=== PATIENT | female | born 1925 | race Caucasian/White ===

== ENCOUNTER → 2016-11-17 | Outpatient (CLI) | payer MEDICARE ==
[~2016-11-17] MED LIST: AMLO10TA82 PO; ASP325TEC PO; ASP81TEC PO; ATOR40TA PO; BNZ20T PO; CARV3.122 PO; CHOL50003 PO; CLOP75TA PO; FURO20TA4 PO; GARL400T13 PO; GLIM2TAB PO; GLIM4TAB PO; GLUC500C2 PO; GMFB600T PO; HCT25T PO; MECLIZINE PO; MULT1CAP27 PO; OMEG-12 PO; POTA20TA15 PO; ROSU20TA14 PO; SITA100T PO; TRM50T PO
--- NOTE | 2016-11-19 10:19 | ECHOCARDIOGRAPHY REPORT ---
PROCEDURE PHYSICIAN: FLORENCIO BARRETT DATE OF PROCEDURE: 11/17/2016 TWO DIMENSIONAL ECHOCARDIOGRAM REPORT PRIMARY PHYSICIAN: OTHER PHYSICIAN: REFERRING PHYSICIAN: Dr. Hazel Hussein ORDERING PHYSICIAN: INDICATION FOR THE PROCEDURE: Coronary artery disease. MEASUREMENTS DERIVED VALUES LV DIAMETER (LAX) NORMALS NORMALS Diastolic 3.4 (3.6-5.2) Eject. Fract. 60% (60%+/-6%) Systolic (2.3-3.9) Diastolic Vol. % Shortening (0.22-0.42) Systolic Vol. Aortic Root IVS THICKNESS Diastolic 1.2 (0.6-1.1) LVPW THICKNESS Diastolic 1.2 (0.6-1.1) LA DIAMETER Systolic 3.1 (2.1-3.7) FINDINGS: 1. Technical quality is good. 2. The left ventricle is normal in size with mild left ventricular hypertrophy noted diffusely. Systolic function appeared to be normal. Estimated ejection fraction 60%. 3. The left atrium is normal in size. No clot or thrombus were seen within the left atrium. 4. The right atrium and right ventricle are normal in size. No clot or thrombus were seen within the right side. 5. Mitral valve is normal in morphology with mild mitral regurgitation noted by color Doppler flow. No mitral valve prolapse. No mitral valve stenosis. 6. Aortic valve is mildly calcified. There is no significant aortic stenosis or regurgitation was seen. 7. Tricuspid valve is normal in morphology with mild tricuspid regurgitation noted by color Doppler flow. Doppler across tricuspid valve estimated pulmonary artery pressure of 17+ right atrial pressure. 8. Pulmonic valve is functioning normally. 9. No pericardial effusion. CONCLUSION: 1. Normal left ventricular size and systolic function. Mild left ventricular hypertrophy. Estimated ejection fraction 60%. 2. Aortic valve sclerosis. No aortic stenosis. 3. Mild mitral and tricuspid regurgitation. 4. Estimated pulmonary artery pressure of 25 mmHg. Job ID: [id number] Dictated Date: 11/18/2016 14:20:27 Intermodal Truck Driver Date: 11/19/2016 10:14:33 / luis carlos
== END ==
LOC: CARD 07:18
PROVIDERS: ATTEND Internal Medicine Cardiovascular Disease
DX: I25.10 Atherosclerotic heart disease of native coronary artery without angina pectoris (principal); I50.9 Heart failure, unspecified; I65.23 Occlusion and stenosis of bilateral carotid arteries; R07.9 Chest pain, unspecified; E78.2 Mixed hyperlipidemia; I11.0 Hypertensive heart disease with heart failure
CPT/HCPCS: 93306

== ENCOUNTER → 2016-11-21 | Outpatient (CLI) | payer MEDICARE ==
[~2016-11-21] VITALS: Ht 170.2 cm; Wt 73.0 kg
[~2016-11-21] MED LIST changes: +CATHETER FLUSH 10 ML SYR IV PRN; +REGADENOSON 0.4 MG/5 ML SYR (LEXISCAN) IV ONE
[2016-11-21 10:06] VITALS: BP 211/94
[2016-11-21 10:10] VITALS: BP 169/70
--- NOTE | 2016-11-21 13:36 | STRESS TEST ---
PROCEDURE PHYSICIAN: FLORENCIO BARRETT DATE OF PROCEDURE: 11/21/2016 LEXISCAN MYOVIEW STRESS TEST REPORT: REFERRING PHYSICIAN: Dr. Lily Hussein. INDICATION: Coronary artery disease. BASELINE HEART RATE: 64 BASELINE BLOOD PRESSURE: 211/71 BASELINE EKG: Sinus rhythm with no ischemic changes. SUMMARY: The patient was injected with 10.33 mCi of technetium 99 Myoview and the resting images were obtained. Then the patient received 0.4 mg of Lexiscan followed by 30.5 mCi of technetium 99 Myoview. Throughout the test, there were no EKG changes. The resting and stress images were reviewed and compared in the short axis, horizontal long axis, and vertical long axis views. Review of the images showed breast attenuation that affected the quality of the images. There is mild decreased uptake at the basal to mid anterior wall, with subtle reversibility. SSS 5, SDS 3, TID value 1.08. On the gated images, the left ventricle appeared to be normal size with normal contractility. Calculated ejection fraction 69%. IN CONCLUSION: 1. The patient tolerated Lexiscan well. 2. Breast attenuation with subtle decrease uptake at the basal to mid anterior wall, with subtle reversibility. No significant ischemia or infarction was seen. 3. Normal left ventricular size with normal contractility. Calculated ejection fraction 69%. Job ID: [id number] Dictated Date: 11/21/2016 12:21:21 Rate Analyst Date: 11/21/2016 13:28:38 / whitney
== END ==
LOC: CARD 07:51
PROVIDERS: ATTEND Internal Medicine Cardiovascular Disease
DX: I25.10 Atherosclerotic heart disease of native coronary artery without angina pectoris (principal); I65.23 Occlusion and stenosis of bilateral carotid arteries; R07.9 Chest pain, unspecified; E78.2 Mixed hyperlipidemia; I11.0 Hypertensive heart disease with heart failure; I50.9 Heart failure, unspecified
CPT/HCPCS: 78452; 93017

== ENCOUNTER 2017-03-29 05:38 | Outpatient (CLI) | payer MEDICARE ==
[~2017-03-29] VITALS: Ht 170.2 cm; Wt 73.0 kg
[~2017-03-29 05:38] MED LIST changes: -CATHETER FLUSH 10 ML SYR IV PRN; -REGADENOSON 0.4 MG/5 ML SYR (LEXISCAN) IV ONE
[2017-03-29] MEDS ORDERED: ATOR40TA70 PO (12:45)
[2017-03-29] MEDS ORDERED: POTA10TA10 PO (12:45)
[2017-03-29] MEDS ORDERED: GABA-486 PO (12:45)
[2017-03-29] MEDS ORDERED: SITA50TA PO (12:45)
[2017-03-29] MEDS ORDERED: LISI-556 PO (13:18)
[2017-03-29] MEDS ORDERED: HYDR-3923 PO (13:18)
[2017-05-01] MEDS ORDERED: TRAM50TA2 PO (14:44)
[2017-05-14] MEDS ORDERED: AMLO10TA2 PO (11:45)
[2017-05-14] MEDS ORDERED: POTA10CA43 PO (11:45)
[2017-05-14] MEDS ORDERED: ASPI-983 PO (14:23)
[2017-05-15] MEDS ORDERED: OMG1KC PO (09:51)
[2017-05-15] MEDS ORDERED: SITA50TA PO (09:51)
== END 2017-03-29 13:20 ==
LOC: PREOP 05:38
PROVIDERS: ATTEND Surgery
DX: Z01.818 Encounter for other preprocedural examination (principal); K92.1 Melena

== ENCOUNTER 2017-04-03 11:20 | Day surgery (SDC) | payer MEDICARE ==
[~2017-04-03] VITALS: Ht 170.2 cm; Wt 73.0 kg
[~2017-04-03 11:20] MED LIST changes: +ATOR40TA70 PO; +GABA-486 PO; +HYDR-3923 PO; +LISI-556 PO; +POTA10TA10 PO; +SITA50TA PO
--- OUTSIDE RECORDS SUMMARY | 2017-04-03 11:24 | XMS REPORT ---
Author Author MOOK BANEGAS [facility] [place] eClinicalWorks Address Unknown Phone Unavailable Care Team Providers Care Real Time Operator Name Role Phone MOOK BANEGAS CP Unavailable Allergies, Adverse Reactions, Alerts Substance Reaction Event Type N.K.D.A. Info Not Available Non Drug Allergy Problems Problem Type Condition Code Onset Dates Condition Status Assessment Encounter for dental examination Z01.20 Active Problem Encounter for dental examination Z01.20 Active Medications Medication Code System Code Instructions Start Date End Date Status Dosage Hydrochlorothiazide [facility] [id number] not defined Vitamin D-3 [facility] [id number] not defined Ferrex 150 [facility] [address]-29 not defined Amlodipine & Diet Manage Prod NDC 0 not defined Clopidogrel Bisulfate [facility] [address]-62 not defined Atorvastatin Calcium [facility] [address]-84 not defined Gabapentin [facility] [address]-27 not defined Fish Oil [facility] [address]-71 not defined Micro-K [facility] [address]-10 not defined Procedures Procedure Coding System Code Date INTRAORL-PERIAPICAL 1 FILM 48105 CPT-4 D0220 Jun 03, 2016 INTRAORL-PERIAPICAL EA ADD FILM CPT-4 D0230 Jun 03, 2016 PERIODIC ORAL EXAMINATION CPT-4 D0120 Jun 03, 2016 BITEWINGS - TWO FILMS CPT-4 D0272 Jun 03, 2016 INTRAORL-PERIAPICAL EA ADD FILM CPT-4 D0230 Jun 03, 2016 TOPICAL FLUORIDE VARNISH CPT-4 D1206 Jun 03, 2016 Periodontal maint procedures CPT-4 D4910 Jun 03, 2016 Vital Signs Date/Time: Jun 03, 2016 Blood Pressure Diastolic 65 mmHg Blood Pressure Systolic 153 mmHg Cardiac Monitoring Heart Rate 69 bpm Results No Known Results Summary Purpose eClinicalWorks Submission
--- OUTSIDE RECORDS SUMMARY | 2017-04-03 11:24 | XMS REPORT ---
Author Author KATHY HUMPHREYS [facility] eClinicalWorks Address Unknown Phone Unavailable Care Team Providers Care Air Crew Supervisor Name Role Phone KATHY HUMPHREYS CP Unavailable Allergies No Known Allergies Problems Problem Type Condition ICD-9 Code Onset Dates Condition Status Assessment Dental examination V72.2 Active Medications No Known Medications Procedures Procedure Coding System Code Date Billing Notes on claim CPT-4 EC109 December 12, 2014 Results No Known Results Summary Purpose eClinicalWorks Submission
--- OUTSIDE RECORDS SUMMARY | 2017-04-03 11:25 | XMS REPORT | Continuity of Care Document ---
Author Author [facility] Organization [facility] Address Unknown Phone Unavailable Allergies Active Description Code Type Severity Reaction Onset Reported/Identified Relationship to Patient Clinical Status Yes No Known Drug Allergies [id number] Drug Allergy Unknown N/ A 08/27/2008 Medications Problems Date Dx Coded Attending Type Code Diagnosis Diagnosed By 12/21/2011 Ot 250.00 DIAB AUNDREA WO COMPL, TYPE II OR UNSPEC TY 12/21/2011 Ot 272.4 HYPERLIPIDEMIA NEC/NOS 12/21/2011 Ot 276.8 HYPOPOTASSEMIA 12/21/2011 Ot 401.9 HYPERTENSION NOS 12/21/2011 Ot 414.01 CORONARY ATHEROSCLEROSIS OF [place] CORON 12/21/2011 Ot 428.0 CONGESTIVE HEART FAILURE NOS 12/21/2011 Ot 433.10 CAROTID ARTERY OCCLUSION W O CEREBRAL IN 12/21/2011 Ot 440.20 ATHEROSCLEROSIS [place] ARTERIES EXTREMIT 12/21/2011 Ot V45.82 PERCUTANEOUS TRANSLUM CORON ANGIOPLASTY 05/24/2012 Ot 250.00 DIAB AUNDREA WO COMPL, TYPE II OR UNSPEC TY 05/24/2012 Ot 272.4 HYPERLIPIDEMIA NEC/NOS 05/24/2012 Ot 401.9 HYPERTENSION NOS 05/24/2012 Ot 414.01 CORONARY ATHEROSCLEROSIS OF [place] CORON 05/24/2012 Ot 794.30 ABN CARDIOVASC STUDY NOS 05/24/2012 Ot V45.82 PERCUTANEOUS TRANSLUM CORON ANGIOPLASTY 05/24/2012 Ot V58.63 LONG-TERM(CURRENT)USE OF ANTIPLATELET/AN 05/24/2012 Ot V58.66 LONG-TERM (CURRENT) USE OF ASPIRIN 05/24/2012 Ot V58.69 OTH MED,LT,CURRENT USE 11/18/2016 FLORENCIO BARRETT MD Ot E78.2 MIXED HYPERLIPIDEMIA 11/18/2016 FLORENCIO BARRETT MD Ot I11.0 HYPERTENSIVE HEART DISEASE WITH HEART FA 11/18/2016 FLORENCIO BARRETT MD Ot I25.10 ATHSCL HEART DISEASE OF [place] CORONARY 11/18/2016 FLORENCIO BARRETT MD Ot I50.9 HEART FAILURE, UNSPECIFIED 11/18/2016 FLORENCIO BARRETT MD Ot I65.23 OCCLUSION AND STENOSIS OF [place] 11/18/2016 FLORENCIO BARRETT MD Ot R07.9 CHEST PAIN, UNSPECIFIED 11/18/2016 Ot 433.10 CAROTID ARTERY OCCLUSION W O CEREBRAL IN 11/18/2016 Ot V72.63 PRE-PROCEDURAL LABORATORY EXAMINATION 11/18/2016 Ot V72.81 [id number] CARDIOVASCULAR 11/18/2016 Ot V72.83 EXAM PRE-OPERATIVE NEC 11/18/2016 Ot V74.8 SCREEN-BACTERIAL DIS NEC 11/18/2016 Ot 401.9 HYPERTENSION NOS 11/18/2016 Ot 414.00 CORON ATHEROSCLER NOS TYPE VESSEL, NATIV 11/18/2016 Ot 397.0 TRICUSPID VALVE DISEASE 11/18/2016 Ot 401.9 HYPERTENSION NOS 11/18/2016 Ot 414.00 CORON ATHEROSCLER NOS TYPE VESSEL, NATIV 11/18/2016 Ot 424.0 MITRAL VALVE DISORDER 11/18/2016 Ot 429.3 CARDIOMEGALY 11/18/2016 FABRICIO BURGOS Ot 272.4 HYPERLIPIDEMIA NEC/NOS 11/18/2016 FABRICIO BURGOS Ot 397.0 TRICUSPID VALVE DISEASE 11/18/2016 FABRICIO BURGOS Ot 401.9 HYPERTENSION NOS 11/18/2016 FABRICIO BURGOS Ot 414.00 CORON ATHEROSCLER NOS TYPE VESSEL, NATIV 11/18/2016 FABRICIO BURGOS Ot 424.0 MITRAL VALVE DISORDER 11/18/2016 FABRICIO BURGOS Ot 433.10 CAROTID ARTERY OCCLUSION W O CEREBRAL IN 11/18/2016 FABRICIO BURGOS Ot 793.99 OT NOSP (ABN) FINDINGS RADIOLOGICAL O 11/18/2016 FABRICIO BURGOS Ot 272.4 HYPERLIPIDEMIA NEC/NOS 11/18/2016 FABRICIO BURGOS Ot 401.9 HYPERTENSION NOS 11/18/2016 FABRICIO BURGOS Ot 414.00 CORON ATHEROSCLER NOS TYPE VESSEL, NATIV 11/18/2016 FLORENCIO BARRETT MD Ot I25.10 ATHSCL HEART DISEASE OF [place] CORONARY 11/18/2016 FLORENCIO BARRETT MD Ot E78.2 MIXED HYPERLIPIDEMIA 11/18/2016 FLORENCIO BARRETT MD J Ot I11.0 HYPERTENSIVE HEART DISEASE WITH HEART FA 11/18/2016 FLORENCIO BARRETT MD Ot I25.10 ATHSCL HEART DISEASE OF [place] CORONARY 11/18/2016 FLORENCIO BARRETT MD Ot I50.9 HEART FAILURE, UNSPECIFIED 11/18/2016 FLORENCIO BARRETT MD J Ot I65.23 OCCLUSION AND STENOSIS OF [place] 11/18/2016 FLORENCIO BARRETT MD Ot R07.9 CHEST PAIN, UNSPECIFIED 11/21/2016 FLORENCIO BARRETT MD Ot E78.2 MIXED HYPERLIPIDEMIA 11/21/2016 FLORENCIO BARRETT MD Ot I11.0 HYPERTENSIVE HEART DISEASE WITH HEART FA 11/21/2016 FLORENCIO BARRETT MD Ot I25.10 ATHSCL HEART DISEASE OF [place] CORONARY 11/21/2016 FLORENCIO BARRETT MD Ot I50.9 HEART FAILURE, UNSPECIFIED 11/21/2016 FLORENCIO BARRETT MD Ot I65.23 OCCLUSION AND STENOSIS OF [place] 11/21/2016 FLORENCIO BARRETT MD Ot R07.9 CHEST PAIN, UNSPECIFIED 11/21/2016 FLORENCIO BARRETT MD Ot E78.2 MIXED HYPERLIPIDEMIA 11/21/2016 FLORENCIO BARRETT MD Ot I11.0 HYPERTENSIVE HEART DISEASE WITH HEART FA 11/21/2016 FLORENCIO BARRETT MD Ot I25.10 ATHSCL HEART DISEASE OF [place] CORONARY 11/21/2016 FLORENCIO BARRETT MD Ot I50.9 HEART FAILURE, UNSPECIFIED 11/21/2016 FLORENCIO BARRETT MD Ot I65.23 OCCLUSION AND STENOSIS OF [place] 11/21/2016 FLORENCIO BARRETT MD Ot R07.9 CHEST PAIN, UNSPECIFIED 11/21/2016 FLORENCIO BARRETT MD Ot E78.2 MIXED HYPERLIPIDEMIA 11/21/2016 FLORENCIO BARRETT MD Ot I11.0 HYPERTENSIVE HEART DISEASE WITH HEART FA 11/21/2016 FLORENCIO BARRETT MD Ot I25.10 ATHSCL HEART DISEASE OF [place] CORONARY 11/21/2016 FLORENCIO BARRETT MD Ot I50.9 HEART FAILURE, UNSPECIFIED 11/21/2016 FLORENCIO BARRETT MD Ot I65.23 OCCLUSION AND STENOSIS OF [place] 11/21/2016 FLORENCIO BARRETT MD Ot R07.9 CHEST PAIN, UNSPECIFIED 11/21/2016 FLORENCIO BARRETT MD Ot E78.2 MIXED HYPERLIPIDEMIA 11/21/2016 FLORENCIO BARRETT MD Ot I11.0 HYPERTENSIVE HEART DISEASE WITH HEART FA 11/21/2016 FLORENCIO BARRETT MD Ot I25.10 ATHSCL HEART DISEASE OF [place] CORONARY 11/21/2016 FLORENCIO BARRETT MD Ot I50.9 HEART FAILURE, UNSPECIFIED 11/21/2016 FLORENCIO BARRETT MD Ot I65.23 OCCLUSION AND STENOSIS OF [place] 11/21/2016 FLORENCIO BARRETT MD Ot R07.9 CHEST PAIN, UNSPECIFIED 11/23/2016 FLORENCIO BARRETT MD Ot E78.2 MIXED HYPERLIPIDEMIA 11/23/2016 FLORENCIO BARRETT MD Ot I11.0 HYPERTENSIVE HEART DISEASE WITH HEART FA 11/23/2016 FLORENCIO BARRETT MD Ot I25.10 ATHSCL HEART DISEASE OF [place] CORONARY 11/23/2016 FLORENCIO BARRETT MD Ot I50.9 HEART FAILURE, UNSPECIFIED 11/23/2016 FLORENCIO BARRETT MD Ot I65.23 OCCLUSION AND STENOSIS OF [place] 11/23/2016 FLORENCIO BARRETT MD Ot R07.9 CHEST PAIN, UNSPECIFIED 11/27/2016 FLORENCIO BARRETT MD Ot E78.2 MIXED HYPERLIPIDEMIA 11/27/2016 FLORENCIO BARRETT MD Ot I11.0 HYPERTENSIVE HEART DISEASE WITH HEART FA 11/27/2016 FLORENCIO BARRETT MD Ot I25.10 ATHSCL HEART DISEASE OF [place] CORONARY 11/27/2016 FLROENCIO BARRETT MD Ot I50.9 HEART FAILURE, UNSPECIFIED 11/27/2016 FLORENCIO BARRETT MD Ot I65.23 OCCLUSION AND STENOSIS OF [place] 11/27/2016 FLORENCIO BARRETT MD Ot R07.9 CHEST PAIN, UNSPECIFIED 12/13/2016 FLORENCIO BARRETT MD Ot E78.2 MIXED HYPERLIPIDEMIA 12/13/2016 FLORENCIO BARRETT MD Ot I11.0 HYPERTENSIVE HEART DISEASE WITH HEART FA 12/13/2016 FLORENCIO BARRETT MD Ot I25.10 ATHSCL HEART DISEASE OF [place] CORONARY 12/13/2016 FLORENCIO BARRETT MD Ot I50.9 HEART FAILURE, UNSPECIFIED 12/13/2016 FLORENCIO BARRETT MD Ot I65.23 OCCLUSION AND STENOSIS OF [place] 12/13/2016 FLORENCIO BARRETT MD Ot R07.9 CHEST PAIN, UNSPECIFIED 12/20/2016 FLORENCIO BARRETT MD Ot E78.2 MIXED HYPERLIPIDEMIA 12/20/2016 FLORENCIO BARRETT MD Ot I11.0 HYPERTENSIVE HEART DISEASE WITH HEART FA 12/20/2016 FLORENCIO BRARETT MD Ot I25.10 ATHSCL HEART DISEASE OF [place] CORONARY 12/20/2016 FLORENCIO BARRETT MD Ot I50.9 HEART FAILURE, UNSPECIFIED 12/20/2016 FLORENCIO BARRETT MD Ot I65.23 OCCLUSION AND STENOSIS OF [place] 12/20/2016 FLORENCIO BARRETT MD Ot R07.9 CHEST PAIN, UNSPECIFIED 12/21/2016 FLORENCIO BARRETT MD Ot E78.2 MIXED HYPERLIPIDEMIA 12/21/2016 FLORENCIO BARRETT MD Ot I11.0 HYPERTENSIVE HEART DISEASE WITH HEART FA 12/21/2016 FLORENCIO BARRETT MD Ot I25.10 ATHSCL HEART DISEASE OF [place] CORONARY 12/21/2016 FLORENCIO BARRETT MD Ot I50.9 HEART FAILURE, UNSPECIFIED 12/21/2016 FLORENCIO BARRETT MD Ot I65.23 OCCLUSION AND STENOSIS OF [place] 12/21/2016 FLORENCIO BARRETT MD Ot R07.9 CHEST PAIN, UNSPECIFIED 12/29/2016 FLORENCIO BARRETT MD Ot E78.2 MIXED HYPERLIPIDEMIA 12/29/2016 FLORENCIO BARRETT MD Ot I11.0 HYPERTENSIVE HEART DISEASE WITH HEART FA 12/29/2016 FLORENCIO BARRETT MD Ot I25.10 ATHSCL HEART DISEASE OF [place] CORONARY 12/29/2016 FLORENCIO BARRETT MD Ot I50.9 HEART FAILURE, UNSPECIFIED 12/29/2016 FLORENCIO BARRETT MD Ot I65.23 OCCLUSION AND STENOSIS OF [place] 12/29/2016 FLORENCIO BARRETT MD Ot R07.9 CHEST PAIN, UNSPECIFIED 03/29/2017 Ot 433.10 CAROTID ARTERY OCCLUSION W O CEREBRAL IN 03/29/2017 Ot V72.63 PRE-PROCEDURAL LABORATORY EXAMINATION 03/29/2017 Ot V72.81 [id number] CARDIOVASCULAR 03/29/2017 Ot V72.83 EXAM PRE-OPERATIVE NEC 03/29/2017 Ot V74.8 SCREEN-BACTERIAL DIS NEC 03/29/2017 Ot 401.9 HYPERTENSION NOS 03/29/2017 Ot 414.00 CORON ATHEROSCLER NOS TYPE VESSEL, NATIV 03/29/2017 Ot 397.0 TRICUSPID VALVE DISEASE 03/29/2017 Ot 401.9 HYPERTENSION NOS 03/29/2017 Ot 414.00 CORON ATHEROSCLER NOS TYPE VESSEL, NATIV 03/29/2017 Ot 424.0 MITRAL VALVE DISORDER 03/29/2017 Ot 429.3 CARDIOMEGALY 03/29/2017 FABRICIO BURGOS Ot 272.4 HYPERLIPIDEMIA NEC/NOS 03/29/2017 FABRICIO BURGOS Ot 397.0 TRICUSPID VALVE DISEASE 03/29/2017 FABRICIO BURGOS Ot 401.9 HYPERTENSION NOS 03/29/2017 FABRICIO BURGOS Ot 414.00 CORON ATHEROSCLER NOS TYPE VESSEL, NATIV 03/29/2017 FABRICIO BURGOS Ot 424.0 MITRAL VALVE DISORDER 03/29/2017 FABRICIO BURGOS Ot 433.10 CAROTID ARTERY OCCLUSION W O CEREBRAL IN 03/29/2017 FABRICIO BURGOS Ot 793.99 OTH NOSP (ABN) FINDINGS RADIOLOGICAL O 03/29/2017 FABRICIO BURGOS Ot 272.4 HYPERLIPIDEMIA NEC/NOS 03/29/2017 FABRICIO BURGOS Ot 401.9 HYPERTENSION NOS 03/29/2017 FABRICIO BURGOS Ot 414.00 CORON ATHEROSCLER NOS TYPE VESSEL, NATIV 03/29/2017 FLORENCIO BARRETT MD Ot E78.2 MIXED HYPERLIPIDEMIA 03/29/2017 FLORENCIO BARRETT MD Ot I11.0 HYPERTENSIVE HEART DISEASE WITH HEART FA 03/29/2017 FLORENCIO BARRETT MD Ot I25.10 ATHSCL HEART DISEASE OF [place] CORONARY 03/29/2017 FLORENCIO BARRETT MD Ot I50.9 HEART FAILURE, UNSPECIFIED 03/29/2017 FLORENCIO BARRETT MD Ot I65.23 OCCLUSION AND STENOSIS OF [place] 03/29/2017 FLORENCIO BARRETT MD Ot R07.9 CHEST PAIN, UNSPECIFIED 03/29/2017 FLORENCIO BARRETT MD Ot E78.2 MIXED HYPERLIPIDEMIA 03/29/2017 FLORENCIO BARRETT MD Ot I11.0 HYPERTENSIVE HEART DISEASE WITH HEART FA 03/29/2017 FLORENCIO BARRETT MD Ot I25.10 ATHSCL HEART DISEASE OF [place] CORONARY 03/29/2017 FLORENCIO BARRETT MD Ot I50.9 HEART FAILURE, UNSPECIFIED 03/29/2017 FLORENCIO BARRETT MD Ot I65.23 OCCLUSION AND STENOSIS OF [place] 03/29/2017 FLORENCIO BARRETT MD Ot R07.9 CHEST PAIN, UNSPECIFIED 03/29/2017 GUADALUPE CORNELL MD Ot K92.1 [facility] 03/29/2017 GUADALUPE CORNELL MD Ot Z01.818 ENCOUNTER FOR OTHER PREPROCEDURAL EXAMIN 03/29/2017 GUADALUPE CORNELL MD Ot K92.1 [facility] 03/29/2017 GUADALUPE CORNELL MD Ot Z01.818 ENCOUNTER FOR OTHER PREPROCEDURAL EXAMIN Procedures Code Description Performed By Performed On 00.40 PROCEDURE ON SINGLE VESSEL 12/19/2011 38.12 HEAD NECK ENDARTER NEC 12/19/2011 Results Encounters ACCT No. Visit Date/Time Discharge Status Pt. Type Provider Facility Loc./Unit Complaint [id number] 03/29/2017 05:38:00 2016 13:20:00 DIS Outpatient GUADALUPE CORNELL MD [facility] PREOP POSITIVE OCCULT STOOL [id number] 11/21/2016 07:51:00 2016 23:59:59 CLS Outpatient FLORENCIO BARRETT MD [facility] CARD CAD,CHF [id number] 11/17/2016 07:18:00 2016 23:59:59 CLS Outpatient FLORENCIO BARRETT MD [facility] CARD CAD [id number] 03/24/2014 08:26:00 2013 23:59:59 CLS Outpatient FABRICIO BURGOS [facility] CARD CAD,VY,HTN,HLP [id number] 03/21/2014 08:51:00 2013 23:59:59 CLS Outpatient AUBRIE GAMING, FABRICIO Connor [facility] CARD CAD,VY,HTN,HLP [id number] 04/03/2017 11:15:00 GISELA CORNELL MD, GUADALUPE [place] [facility] ENDO POSITIVE OCCULT STOOL [id number] 05/23/2012 06:35:00 Document Registration [id number] 05/08/2012 11:11:00 Document Registration [id number] 05/03/2012 10:03:00 Document Registration [id number] 12/19/2011 05:47:00 Document Registration [id number] 12/15/2011 09:40:00 Document Registration
[2017-04-03] MEDS ORDERED: NS IV 500 ML 500 ML ONE (11:40)
[2017-04-03] MEDS ORDERED: NS IV 500 ML 500 ML IV ONE (11:45)
[2017-04-03 11:59] VITALS: BP 194/90
[2017-04-03] MEDS ORDERED: MIDAZOLAM 2 MG/2 ML (VERSED) VIAL ONE ×3 (14:28)
[2017-04-03] MEDS ORDERED: fentaNYL INJECTION 100 MCG/2 ML AMP ONE (14:28)
--- NOTE | 2017-04-03 14:47 | History & Physicial ---
History of Present Illness History of Present Illness Reason for visit/HPI to undergo colonoscopy to evaluate heme positive stools Date of Admission Date Seen by Provider: Apr 03, 2017 Time Seen by Provider: 14:46 I consulted on this patient on 04/03/17 14:42 Attending Physician Guadalupe Cornell MD Admitting Physician Hazel Hussein MD Consult Allergies and Home Medications Allergies Coded Allergies: No Known Drug Allergies (Verified Allergy, Unknown, 08/27/08) Home Medications Amlodipine Besylate 10 Mg Tablet, 10 MG PO DAILY, (Reported) Aspirin 81 Mg Tabec, 81 MG PO DAILY, (Reported) Atorvastatin Calcium 40 Mg Tablet, 40 MG PO HS, (Reported) Cholecalciferol 5,000 Unit Tablet, 5,000 UNIT PO DAILY, (Reported) Clopidogrel Bisulfate 75 Mg Tablet, 75 MG PO DAILY, (Reported) Gabapentin 100 Mg Capsule, 100 MG PO TID, (Reported) Garlic 400 Mg Tablet.dr, 400 MG PO DAILY, (Reported) Glucosamine Sulfate 500 Mg Capsule, 500 MG PO DAILY, (Reported) Hydralazine HCl 25 Mg Tablet, 25 MG PO BID, (Reported) Hydrochlorothiazide 25 Mg Tablet, 25 MG PO DAILY, (Reported) Lisinopril 5 Mg Tablet, 5 MG PO DAILY, (Reported) Multivitamins 1 Each Capsule, 1 EACH PO DAILY, (Reported) Penn Laird-3/Dha/Epa/Fish Oil 1 Each Capsule.dr, 1,000 MG PO BID, (Reported) Potassium Chloride 10 Meq Tablet.er, 10 MEQ PO DAILY, (Reported) Sitagliptin Phosphate 50 Mg Tablet, 50 MG PO DAILY, (Reported) Past Fvanhln-Hmjkcx-Epnmug Hx Patient Social History Employed/Student: retired Alcohol Use: Denies Use Recreational Drug Use: No Smoking Status: Never a Smoker Recent Foreign Travel: No Contact w/other who traveled: No Recent Hopitalizations: No Recent Infectious Disease Expo: No Seasonal Allergies Seasonal Allergies: No Surgeries Hysterectomy Cardiovascular Hypertension Reproductive System Hx Reproductive Disorders: No Gastrointestinal Chronic Constipation Musculoskeletal Arthritis Cancer Ovarian Type of Treatment: Surgical Intervention Constitutional: no symptoms reported EENTM: no symptoms reported Respiratory: no symptoms reported Cardiovascular: no symptoms reported Gastrointestinal: melena Genitourinary: no symptoms reported Musculoskeletal: no symptoms reported Skin: no symptoms reported Psychiatric/Neurological: No Symptoms Reported Physical Exam Vital Signs Vital Sign - Last 12Hours 04/03/17 11:59 Temp 96.8 Pulse 77 Resp 18 B/P (MAP) 194/90 Pulse Ox 94 O2 Delivery Room Air Capillary Refill : General Appearance: No Apparent Distress HEENT: Normal ENT Inspection Neck: Normal Inspection Cardiovascular: Regular Rate, Rhythm Gastrointestinal: Normal Bowel Sounds Rectal: Deferred Back: Normal Inspection Extremity: Normal Inspection Neurologic/Psychiatric: Alert, Oriented x3 Skin: Warm/Dry Assessment/Plan Assessment and Plan Lady with heme positive stools, For colonoscopy Problems: GUADALUPE CORNELL MD Apr 03, 2017 2:46 pm
[2017-04-03] MEDS: fentaNYL INJECTION 100 MCG/2 ML AMP IVP PRN ×2 (15:02→15:05)
[2017-04-03] MEDS: MIDAZOLAM 2 MG/2 ML (VERSED) VIAL IVP PRN ×2 (15:03→15:06)
--- NOTE | 2017-04-03 15:46 | Endo Procedure Record ---
Endo Procedure Report Date of Procedure Apr 03, 2017 Surgeon (s) GUADALUPE CORNELL MD Post Procedure/Op Diagnosis 1.sigmoid diverticulosis 2. 1 mm polyp 2 at the proximal transverse colon 3. 3 mm polyp at the ascending colon 4. 2 mm polyp at the ascending colon, adjacent to polyp number 3 5. Sessile lesion at the cecum Procedure Performed 1.colonoscopy to cecum 2.Hot biopsy polypectomy 2 3. Snare polypectomy 2 4. Biopsy of cecal mass 5. Tattooing of cecal mass Description of Procedure Anesthesia Type: Conscious Sedation Specimen(s) collected/removed polyps and samples from the cecal mass Description of the Procedure Indication for the procedure:This lady was found to have heme positive stools. It is notable that she had not undergone screening colonoscopy in her lifetime. It was therefore felt reasonable to offer colonoscopy to evaluate the source of blood loss.informed consent was obtained after reviewing the procedure in detail. Description of procedure: She was placed in left lateral decubitus position and her vital signs were monitored. Conscious sedation was achieved using Versed and fentanyl. Digital rectal examination revealed a lax anal sphincter. The colonoscope was then introduced in the rectum and advanced all the way up to the cecum. The quality of bowel preparation was excellent. The scope was then withdrawn slowly and the mucosa examined in a systematic fashion. Findings: 1.Sigmoid diverticulosis 2. 2 polyps, and millimeter each, adjacent to each other, at the proximal transverse colon. These were excised with hot biopsy forceps 3. 2 polyps, 3 mm and 2 mm each, pedunculated in nature, adjacent to each other , at the ascending colon. These were snared and retrieved 4. A sessile mass lesion at the cecum having the appearance of either a villous adenoma or an early carcinoma. Biopsies were obtained and the area was tattooed with Siria ink for identification during resection. She tolerated the procedure well and was taken back to the nursing area in a stable condition. Impression: Heme positive stools.multiple polyps and a cecal lesion identified. Would require right hemicolectomy using robotic assistance and intracorporeal anastomosis. She will undergo CT scan evaluation and cardiac clearance prior to surgery Copies To: RAY BOUCHER MD, XAVIER M MD Apr 03, 2017 3:46 pm
--- NOTE | 2017-04-03 15:48 | Discharge Inst-Simple/Standard ---
Discharge Inst-Standard Discharge Medications New, Converted or Re-Newed RX: Other Patient Instructions/Follow Up Plan of Care/Instructions/FU: please schedule CT of the chest with IV contrast, CT of the abdomen and pelvis with oral and IV contrast as an outpatient, preferably this week. Follow up with me on at 1030 a.m. Activity as Tolerated: Yes Discharge Diet: No Restrictions GUADALUPE CORNELL MD Apr 03, 2017 3:48 pm
[2017-04-03 15:50] VITALS: BP 219/92
[2017-04-03 16:20] VITALS: BP 208/88
[2017-04-03 16:38] VITALS: BP 208/88
[2017-04-03 17:18] LABS: CREATININE SERUM 0.9 MG/DL (0.60-1.30)
--- NOTE | 2017-04-21 16:14 | Conscious Sedation/ASA ---
Conscious Sedation Pre-Proced Time Reviewed: 07:55 ASA Class: 2 Airway Mallampati Classification: ([place] appropriate class) I. II. III, IV Lungs Heart ASA score ASA 1: a normal healthy patient ASA 2: a patient with a mild systemic disease (mid diabetes, controlled hypertension, obesity ASA 3: a patient with a severe systemic disease that limits activity (angina , COPD, prior Myocardial infarction) ASA 4: a patient with an incapacitating disease that is a constant threat to life (CHF, renal failure) ASA 5: a moribund patient not expected to survive 24 hrs. (ruptured aneurysm) ASA 6: a declared brain patient whose organs are being harvested. For emergent operations, add the letter E after the classification Grade 1 Sedation Plan: Discussed options with patient/fam Note The patient is an appropriate candidate to undergo the planned procedure, sedation, and anesthesia. The patient immediately re-assessed prior to indication. GUADALUPE CORNELL MD Apr 21, 2017 16:14
[2017-05-01] MEDS ORDERED: TRAM50TA2 PO (14:44)
[2017-05-14] MEDS ORDERED: POTA10CA43 PO (11:45)
[2017-05-14] MEDS ORDERED: AMLO10TA2 PO (11:45)
[2017-05-14] MEDS ORDERED: ASPI-983 PO (14:23)
[2017-05-15] MEDS ORDERED: SITA50TA PO (09:51)
[2017-05-15] MEDS ORDERED: OMG1KC PO (09:51)
== END 2017-04-03 16:38 | disposition home or self-care (01) ==
LOC: ENDO 11:20
PROVIDERS: ATTEND Surgery
DX: K63.5 Polyp of colon (principal); K57.30 Diverticulosis of large intestine without perforation or abscess without bleeding; D12.0 Benign neoplasm of cecum; D12.2 Benign neoplasm of ascending colon; I10 Essential (primary) hypertension; K59.09 Other constipation; Z79.899 Other long term (current) drug therapy
CPT/HCPCS: 36415; 82565; 84520; 88305

== ENCOUNTER → 2017-04-04 | Outpatient (CLI) | payer MEDICARE ==
[~2017-04-04] MED LIST changes: +BARIUM SUSPENSION 2.1% (VANILLA SILQ) 450 ML PO ONE; +CATHETER FLUSH 10 ML SYR IV PRN; +IOHEXOL 350 MG/ML 100 ML (OMNIPAQUE 350) VIAL IV ONE; +NS 100 ML (IVPB) BAG IV ONE
--- NOTE | 2017-04-04 16:25 | Diagnostic Imaging Report ---
PROCEDURE: CT chest, abdomen, and pelvis with contrast. TECHNIQUE: Multiple contiguous axial images were obtained through the chest, abdomen, and pelvis after the administration of intravenous contrast. Sagittal and coronal reconstructed images were also obtained. INDICATION: Cecal mass. There are no previous CT examinations available for comparison. FINDINGS: By history, the patient has a recent diagnosis of a cecal mass. On this exam, that mass is difficult to identify as the cecum and ascending colon are filled with fecal material. There is diverticulosis of the sigmoid colon but there is no sign of an acute diverticulitis. The appendix was not well visualized but there are no indirect signs of acute appendicitis. There are multiple areas of low density throughout the liver. These are fairly well circumscribed and I suspect that they are related to cysts. The largest of these 2 cysts are in the right lobe of the liver and have a conglomerate size of approximately 7.7 x 11.3 cm. There are also multiple cysts associated with both kidneys. The largest cyst is along the inferior pole of the left kidney and measures 2.4 x 3.2 cm. There is no solid mass involving the kidneys and both kidneys do show excretion of the contrast. The gallbladder is distended but there is no sign of cholelithiasis or acute cholecystitis and the common bile duct is not dilated. The spleen, pancreas, adrenals, aorta and inferior vena cava are unremarkable for an acute abnormality. The stomach is not well distended and difficult to assess. The images through the thorax show mild chronic changes involving the lung bases. There is no parenchymal lung mass identified to suggest neoplastic disease. There is no evidence for failure, pneumonia or pleural effusion either. The heart size is within normal limits. Coronary artery calcifications are noted. The aorta is not abnormally dilated and there is no sign of a dissection. There is no defect within the pulmonary arteries to indicate a pulmonary embolus. There is no mediastinal or hilar adenopathy noted. The thyroid gland is unremarkable. The bone windows show no sign of a fracture or of a destructive lesion. There is degenerative disc and bony disease at L4-L5 and L5-S1. IMPRESSION: 1. The cecal mass recently identified at colonoscopy is difficult to visualize on this exam. 2. There is no acute abnormality of the chest, abdomen or pelvis. 3. There is diverticulosis of the sigmoid colon without evidence for acute diverticulitis. 4. There are multiple cysts involving the liver and to a lesser extent the kidneys. 5. The heart is not enlarged but there are coronary artery calcifications. Dictated by: Dictated on workstation # [id number]
== END ==
LOC: RAD 13:41
PROVIDERS: ATTEND Surgery
DX: K57.30 Diverticulosis of large intestine without perforation or abscess without bleeding (principal); I25.10 Atherosclerotic heart disease of native coronary artery without angina pectoris; K76.89 Other specified diseases of liver; N28.1 Cyst of kidney, acquired; K63.89 Other specified diseases of intestine
CPT/HCPCS: 71260; 74177

== ENCOUNTER 2017-04-24 10:26 | Outpatient (CLI) | payer MEDICARE ==
[~2017-04-24] VITALS: Ht 170.2 cm; Wt 67.6 kg
[~2017-04-24 10:26] MED LIST changes: -BARIUM SUSPENSION 2.1% (VANILLA SILQ) 450 ML PO ONE; -CATHETER FLUSH 10 ML SYR IV PRN; -IOHEXOL 350 MG/ML 100 ML (OMNIPAQUE 350) VIAL IV ONE; -NS 100 ML (IVPB) BAG IV ONE
[2017-04-24 10:35] VITALS: BP 193/80
[2017-04-24] MEDS ORDERED: [UNRECOGNIZED DRUG - CODE] PO (10:44)
[2017-04-24] MEDS ORDERED: GARL10002 PO (10:44)
[2017-04-24 11:17] LABS: BASOPHILS % (AUTO) 0 % (0-10); EOSINOPHILS # (AUTO) 0.1 10^3/uL (0.0-0.3); EOSINOPHILS % (AUTO) 1 % (0-10); LYMPHOCYTES # (AUTO) 1.3 X 10^3 (1.0-4.0); LYMPHOCYTES % (AUTO) 20 % (12-44); MEAN CORPUSCULAR HEMOGLOBIN 29 PG (25-34); MEAN CORPUSCULAR HGB CONC 33 G/DL (32-36); MEAN CORPUSCULAR VOLUME 89 FL (80-99); MEAN PLATELET VOLUME 10.4 FL (7.4-10.4); MONOCYTES # (AUTO) 0.4 X 10^3 (0.0-1.0); MONOCYTES % (AUTO) 6 % (0-12); NEUTROPHILS # (AUTO) 4.9 X 10^3 (1.8-7.8); NEUTROPHILS % (AUTO) 73 % (42-75); PLATELET COUNT 177 10^3/uL (130-400); RED BLOOD COUNT 4.33 10^6/uL (4.35-5.85); RED CELL DISTRIBUTION WIDTH 14.1 % (10.0-14.5); WHITE BLOOD COUNT 6.7 10^3/uL (4.3-11.0)
[2017-04-24 11:55] LABS: ANION GAP 6 MMOL/L (5-14); BLOOD UREA NITROGEN 10 MG/DL (7-18); BUN/CREATININE RATIO 13; CALCIUM 9.7 MG/DL (8.5-10.1); CARBON DIOXIDE 28 MMOL/L (21-32); CHLORIDE 108 MMOL/L (98-107); CREATININE SERUM 0.78 MG/DL (0.60-1.30); GFR ESTIMATED > 60; GLUCOSE 119 MG/DL (70-105); SODIUM 142 MMOL/L (135-145)
== END 2017-04-24 11:04 | disposition home or self-care (01) ==
LOC: PREOP 10:26
PROVIDERS: ATTEND Surgery
DX: Z01.812 Encounter for preprocedural laboratory examination (principal); K63.9 Disease of intestine, unspecified; K63.5 Polyp of colon
CPT/HCPCS: 36415; 80048; 85025; 87081

== ENCOUNTER 2017-04-28 05:56 | Inpatient (IN) | payer MEDICARE ==
[~2017-04-28] VITALS: Ht 170.2 cm; Wt 67.6 kg
[2017-04-28] VITALS (13 sets, daily range): BP systolic 96–193; BP diastolic 45–73
[~2017-04-28 05:56] MED LIST changes: +GARL10002 PO; +[UNRECOGNIZED DRUG - CODE] PO
[2017-04-28] MEDS ORDERED: ceFAZolin 1,000 MG (ANCEF) VIAL ONE (06:07)
[2017-04-28] MEDS ORDERED: NS (IVPB) 50 ML ONE (06:07)
[2017-04-28] MEDS ORDERED: metroNIDAZOLE 500MG/100ML IVPB 100 ML ONE (06:08)
[2017-04-28] MEDS ORDERED: BUP/EPI 0.5% 1:200,000 (MARCAINE) 10ML VIAL IJ ONE (06:41)
[2017-04-28] MEDS ORDERED: LACTATED RINGERS 1,000 ML IV ONE ×2 (06:43→09:03)
[2017-04-28] MEDS ORDERED: ROCURONIUM 50 MG/5 ML (ZEMURON) VIAL IV ONE (06:43)
[2017-04-28] MEDS ORDERED: LIDOCAINE PF 2% 5 ML (XYLOCAINE) VIAL ONE (06:43)
[2017-04-28] MEDS ORDERED: fentaNYL INJECTION 100 MCG/2 ML AMP ONE ×2 (06:43→09:57)
[2017-04-28] MEDS ORDERED: proPOfol 200 MG/20 ML (DIPRIVAN) VIAL IV ONE (06:43)
[2017-04-28] MEDS ORDERED: SEVOFLURANE (ULTANE) 15 ML INHAL SOLN ONE ×15 (06:43→10:41)
[2017-04-28] MEDS ORDERED: ONDANSETRON 4 MG/2 ML (SDV) Z0FRAN ONE (06:43)
[2017-04-28] MEDS ORDERED: metroNIDAZOLE 500 MG/100 ML IVPB (PRE-MIX) IV ONE (06:45)
[2017-04-28] MEDS ORDERED: ceFAZolin 1 GM/NS 50 ML IVPB IV ONE ×2 (06:45)
[2017-04-28] MEDS: LACTATED RINGERS 1,000 ML IV PRN ×2 (07:04→07:42)
[2017-04-28] MEDS ORDERED: MIDAZOLAM 2 MG/2 ML (VERSED) VIAL ONE (07:09)
--- NOTE | 2017-04-28 07:11 | Progress Note-Pre Operative ---
Pre-Operative Progress Note H&P Reviewed The H&P was reviewed, patient examined and no changes noted. Date Seen by Provider: Apr 20, 2017 Time Seen by Provider: 14:00 Date H&P Reviewed: Apr 28, 2017 Time H&P Reviewed: 07:11 Pre-Operative Diagnosis: Sessile lesion of cecum GUADALUPE CORNELL MD Apr 28, 2017 7:11 am
[2017-04-28] MEDS ORDERED: meTOprolol 5 MG/5 ML (LOPRESSOR) VIAL ONE (07:36)
[2017-04-28] MEDS ORDERED: ENALAPRILAT 2.5 MG/2 ML (VASOTEC) VIAL IV ONE (07:56)
[2017-04-28] MEDS ORDERED: GLYCOPYRROLATE 0.2 MG/ML (ROBINUL) 2 ML VIAL ONE (10:28)
[2017-04-28] MEDS ORDERED: NEOSTIGMINE (BLOXIVERZ ) 1 MG/1ML 10 ML VIAL ONE (10:28)
[2017-04-28] MEDS ORDERED: ONDANSETRON 4 MG/2 ML (SDV) Z0FRAN IVP PRN ×2 (11:15→13:00)
[2017-04-28] MEDS ORDERED: MEPERIDINE (DEMEROL) INJ 50 MG/ML IVP PRN (11:15)
[2017-04-28] MEDS ORDERED: morphine INJ 10 MG/ML 1ML (SYR OR VIAL) IVP PRN (11:15)
[2017-04-28] MEDS ORDERED: LABETALOL HCL 20 MG/4 ML VIAL IV PRN (13:00)
[2017-04-28] MEDS: fentaNYL INJECTION 100 MCG/2 ML AMP IVP PRN ×3 (13:12→19:36)
[2017-04-28] MEDS ORDERED: CATHETER FLUSH 10 ML SYR IV PRN (13:15)
[2017-04-28] MEDS: LACTATED RINGERS 1,000 ML IV SCH (13:25)
[2017-04-28] MEDS ORDERED: NS IV 1000 ML 1,000 ML IV SCH (14:00)
[2017-04-28] MEDS: inSUlin ASPART (NovoLOG) 1 UNIT/0.01 ML (CHARGE PER UNIT) SC SCH ×2 (16:25→21:06)
--- NOTE | 2017-04-28 16:40 | Operative Report ---
Operative Report Date of Procedure/Surgery Apr 28, 2017 Surgeon (s) GUADALUPE CORNELL MD Rn Emergency (s): not applicable Post-Operative Diagnosis same Procedure Performed robotic assisted right hemicolectomy with intracorporeal anastomosis Description of Procedure Anesthesia Type: General Estimated blood loss (mL): minimal Specimen(s) collected/removed right colon Description of the Procedure Indication for procedure: Evaluation for iron deficiency anemia with heme positive stools confirmed a large sessile lesion at the cecum, requiring resection. She was offered minimally invasive procedure with robotic assistance and intracorporeal anastomosis. Informed consent was obtained after reviewing the operative details and complications of wound infection, anastomotic leak requiring fecal diversion endocardial-respiratory dysfunction. Description of procedure: She was placed supine on the operative table and general anesthesia induced using an endotracheal tube. A gram of Ancef and 500 mg of Flagyl were administered intravenously as prophylaxis against wound infection. Sequential compression devices were placed around her legs, to minimize the risk of venous thrombosis. Abdomen was prepared and draped in the usual sterile manner. Due to previous surgery using a left paramedian incision, I elected to establish pneumoperitoneum using a Veress needle introduced over the right subcostal margin. Intra-abdominal pressure was maintained at 15 mmHg, using carbon dioxide insufflation. A 5 mm trocar was placed and anatomy visualized using a conventional laparoscope. There were no adhesions and we proceeded with robotic technique. Under direct view, I placed a 10 mm trocar to the left of the umbilicus followed by robotic 8 mm trochars over the left subcostal margin and the suprapubic region. A 12 mm trocar to allow the stapler was placed around 8 cm from the camera port. Another 10 mm trocar was placed over the left lower quadrant to allow seen and scheduling assistant's grasper. The patient was turned and a slight Trendelenburg position with the right side tilted up and the robotic system was docked in place. Siria ink used to tattoo the lesion was easily identified. Right colon was held up using the grasping forceps, placing the ileo-colic pedicle into tension. It was taken down using the vessel sealing device. Mobilization was then continued in a medial to lateral fashion, sweeping the duodenum out of the way. The mesentery of the terminal ileum was isolated about 10 cm proximal to the ileocecal junction. I, then turned the attention hepatic flexure. Replaced using Harmonic scalpel up to the proximal transverse colon. The middle colic vessels were preserved. Terminal ileum and the proximal transverse colon where it divided using 3.5 mm robotic staplers. There was good perfusion at both transected ends. An isoperistaltic anastomosis was made using the robotic, 3.5 mm stapler. The common enterotomy was then closed using a first layer of 2-0 V lock suture followed by a second layer of Lembert's suture with 3-0 Vicryl sutures. The specimen was then brought out through a 4 cm Pfannenstiel incision with a wound protecting device placed within it. Peritoneum over this incision was closed using 2-0 Vicryl in the fascia using #2 Prolene. Subcutaneous tissue was approximated using 3-0 Vicryl and skin with 4-0 Vicryl, in a subcuticular fashion. The fascia over the 10 mm incisions was closed using #1 Vicryl and skin with 4- 0 Vicryl, in a subcuticular fashion. 0.5 percent Marcaine with epinephrine was infiltrated along the incisions, both pre-emptively and at the conclusion of the operation She tolerated the procedure well, was extubated in the operating room and taken to the recovery room in a stable condition. Findings of the Procedure the operative report Allergies and Home Medications Allergies Coded Allergies: No Known Drug Allergies (Verified Allergy, Unknown, 08/27/08) Home Medications Amlodipine Besylate 10 Mg Tablet, 10 MG PO DAILY, (Reported) Aspirin 81 Mg Tabec, 81 MG PO DAILY, (Reported) Atorvastatin Calcium 40 Mg Tablet, 40 MG PO HS, (Reported) Cholecalciferol 5,000 Unit Tablet, 5,000 UNIT PO DAILY, (Reported) Clopidogrel Bisulfate 75 Mg Tablet, 75 MG PO DAILY, (Reported) Gabapentin 100 Mg Capsule, 100 MG PO TID, (Reported) Garlic 1,000 Mg Capsule, 1,000 MG PO DAILY, (Reported) Glucosamine Sulfate 2Kcl 1,000 Mg Tablet, 1,000 MG PO DAILY, (Reported) Hydralazine HCl 25 Mg Tablet, 25 MG PO BID, (Reported) Lisinopril 5 Mg Tablet, 5 MG PO DAILY, (Reported) [place]-3/Dha/Epa/Fish Oil 1 Each Capsule.dr, 1,000 MG PO BID, (Reported) Potassium Chloride 10 Meq Tablet.er, 10 MEQ PO DAILY, (Reported) Sitagliptin Phosphate 50 Mg Tablet, 50 MG PO DAILY, (Reported) GUADALUPE CORNELL MD Apr 28, 2017 4:40 pm
[2017-04-28] MEDS: ATORVASTATIN 40 MG (LIPITOR) TABLET PO SCH (21:05)
[2017-04-28] MEDS: GABAPENTIN 100 MG (NEURONTIN) CAP PO SCH (21:05)
[2017-04-28] MEDS: hydrALAZINE (APRESOLINE) 25 MG TAB PO SCH ×2 (21:05→21:09)
[2017-04-29] VITALS (18 sets, daily range): BP systolic 100–143; BP diastolic 36–76
[2017-04-29] MEDS: LACTATED RINGERS 1,000 ML IV SCH ×3 (02:53→23:40)
[2017-04-29 05:02] LABS: BASOPHILS % (AUTO) 0 % (0-10); EOSINOPHILS % (AUTO) 0 % (0-10); LYMPHOCYTES # (AUTO) 1.4 X 10^3 (1.0-4.0); LYMPHOCYTES % (AUTO) 10 % (12-44); MEAN CORPUSCULAR HEMOGLOBIN 29 PG (25-34); MEAN CORPUSCULAR HGB CONC 32 G/DL (32-36); MEAN CORPUSCULAR VOLUME 90 FL (80-99); MONOCYTES # (AUTO) 1.1 X 10^3 (0.0-1.0); MONOCYTES % (AUTO) 8 % (0-12); NEUTROPHILS # (AUTO) 11.2 X 10^3 (1.8-7.8); NEUTROPHILS % (AUTO) 82 % (42-75); PLATELET COUNT 157 10^3/uL (130-400); RED BLOOD COUNT 3.16 10^6/uL (4.35-5.85); RED CELL DISTRIBUTION WIDTH 14.2 % (10.0-14.5); WHITE BLOOD COUNT 13.8 10^3/uL (4.3-11.0)
[2017-04-29 05:20] LABS: ALBUMIN 3.3 GM/DL (3.2-4.5); BILIRUBIN,TOTAL 0.5 MG/DL (0.1-1.0); CALCIUM 8.6 MG/DL (8.5-10.1); CREATININE SERUM 1.26 MG/DL (0.60-1.30); MAGNESIUM 2.1 MG/DL (1.8-2.4); POTASSIUM 3.6 MMOL/L (3.6-5.0); TOTAL PROTEIN 5.1 GM/DL (6.4-8.2)
[2017-04-29] MEDS: fentaNYL INJECTION 100 MCG/2 ML AMP IVP PRN (05:23)
[2017-04-29] MEDS: inSUlin ASPART (NovoLOG) 1 UNIT/0.01 ML (CHARGE PER UNIT) SC SCH ×4 (05:24→22:03)
[2017-04-29] MEDS: GABAPENTIN 100 MG (NEURONTIN) CAP PO SCH ×3 (09:00→22:03)
[2017-04-29] MEDS: lisINopril 5 MG (PRINIVIL) TABLET PO SCH (09:01)
[2017-04-29] MEDS: amLODIPine 10 MG (NORVASC) TAB PO SCH (09:01)
[2017-04-29] MEDS: HYDROcodone/APAP 5 MG/325 MG (LORTAB) TAB PO PRN ×2 (09:01→15:51)
[2017-04-29] MEDS: hydrALAZINE (APRESOLINE) 25 MG TAB PO SCH ×2 (09:01→22:03)
[2017-04-29] MEDS: ASPIRIN E.C. 81 MG (ECOTRIN) TAB PO SCH (09:02)
[2017-04-29] MEDS ORDERED: ENOXAPARIN 40 MG/0.4 ML (LOVENOX) SYR SC SCH (11:00)
--- NOTE | 2017-04-29 12:51 | Progress Note-Standard ---
Standard Progress Note Progress Notes/Assess & Plan Date Seen by Provider: Apr 29, 2017 Time Seen by Provider: 12:10 Progress/Assessment & Plan doing well. Vital signs stable. Afebrile. Urine output slightly low but appears to be clear. Ecchymosis along the left side of the abdomen, will observe. Tolerating diet. Could be transferred to the floor with telemetry on. Final Diagnosis sessile lesion of cecum GUADALUPE CORNELL MD Apr 29, 2017 12:50 pm
--- NOTE | 2017-04-29 15:44 | Anesthesia-General Post-Op ---
General Patient Condition Mental Status/LOC: Same as Preop Cardiovascular: Satisfactory Nausea/Vomiting: Absent Respiratory: Satisfactory Pain: Controlled Complications: Absent Post Op Complications Complications None Follow Up Care/Instructions Patient Instructions None needed. Anesthesia/Patient Condition Patient Condition Patient is doing well, no complaints, stable vital signs, no apparent adverse anesthesia problems. No complications reported per nursing. Pt currently in process of being transferred to medical floor. PERLA LAURA CRNA Apr 29, 2017 15:44
[2017-04-29] MEDS: METOCLOPRAMIDE INJ 10 MG/2 ML (REGLAN) IVP SCH ×2 (17:39→23:44)
[2017-04-29] MEDS: ATORVASTATIN 40 MG (LIPITOR) TABLET PO SCH (22:03)
[2017-04-29] MEDS ORDERED: LACTATED RINGERS 1,000 ML IV ONE (22:30)
[2017-04-30] VITALS: BP 119/50
[2017-04-30 04:00] VITALS: BP 146/63
[2017-04-30] MEDS: inSUlin ASPART (NovoLOG) 1 UNIT/0.01 ML (CHARGE PER UNIT) SC SCH ×4 (06:10→22:03)
[2017-04-30] MEDS: METOCLOPRAMIDE INJ 10 MG/2 ML (REGLAN) IVP SCH ×3 (06:28→18:13)
[2017-04-30 08:00] VITALS: BP 131/64
[2017-04-30] MEDS: hydrALAZINE (APRESOLINE) 25 MG TAB PO SCH ×2 (08:44→22:53)
[2017-04-30] MEDS: amLODIPine 10 MG (NORVASC) TAB PO SCH (08:44)
[2017-04-30] MEDS: lisINopril 5 MG (PRINIVIL) TABLET PO SCH (08:44)
[2017-04-30] MEDS: ASPIRIN E.C. 81 MG (ECOTRIN) TAB PO SCH (08:45)
[2017-04-30] MEDS: GABAPENTIN 100 MG (NEURONTIN) CAP PO SCH ×3 (08:45→22:54)
[2017-04-30 12:00] VITALS: BP 126/63
[2017-04-30] MEDS: HYDROcodone/APAP 5 MG/325 MG (LORTAB) TAB PO PRN ×2 (15:46→20:04)
[2017-04-30 16:00] VITALS: BP 146/68
--- NOTE | 2017-04-30 16:20 | Progress Note-Standard ---
Standard Progress Note Progress Notes/Assess & Plan Date Seen by Provider: Apr 30, 2017 Time Seen by Provider: 15:15 Progress/Assessment & Plan doing well. Vital signs stable. Afebrile. Urine output slightly low but appears to be clear. Ecchymosis along the left side of the abdomen, will observe. Tolerating diet. Could be transferred to the floor with telemetry on. Has had a bowel movement. Mild abdominal distention. Ecchymosis over the left side of the abdominal wall unchanged. We'll continue to monitor Final Diagnosis sessile lesion of cecum GUADALUPE CORNELL MD Apr 30, 2017 4:20 pm
[2017-04-30 20:00] VITALS: BP 123/67
[2017-04-30] MEDS: ATORVASTATIN 40 MG (LIPITOR) TABLET PO SCH (22:53)
[2017-05-01] MEDS: METOCLOPRAMIDE INJ 10 MG/2 ML (REGLAN) IVP SCH ×3 (00:20→12:54)
[2017-05-01 00:52] VITALS: BP 106/61
[2017-05-01 04:00] VITALS: BP 134/59
[2017-05-01] MEDS: inSUlin ASPART (NovoLOG) 1 UNIT/0.01 ML (CHARGE PER UNIT) SC SCH ×2 (05:44→11:10)
[2017-05-01 07:57] VITALS: BP 146/74
[2017-05-01] MEDS: GABAPENTIN 100 MG (NEURONTIN) CAP PO SCH ×2 (09:37→12:54)
[2017-05-01] MEDS: ASPIRIN E.C. 81 MG (ECOTRIN) TAB PO SCH (09:37)
[2017-05-01] MEDS: hydrALAZINE (APRESOLINE) 25 MG TAB PO SCH (09:37)
[2017-05-01] MEDS: amLODIPine 10 MG (NORVASC) TAB PO SCH (09:37)
[2017-05-01] MEDS: lisINopril 5 MG (PRINIVIL) TABLET PO SCH (09:37)
[2017-05-01 11:52] VITALS: BP 144/62
--- NOTE | 2017-05-01 14:41 | Progress Note-Standard ---
Standard Progress Note Progress Notes/Assess & Plan Date Seen by Provider: May 01, 2017 Time Seen by Provider: 14:39 Progress/Assessment & Plan doing well. Vital signs stable. Afebrile. Urine output slightly low but appears to be clear. Ecchymosis along the left side of the abdomen, will observe. Tolerating diet. Could be transferred to the floor with telemetry on. Has had a bowel movement. Mild abdominal distention. Ecchymosis over the left side of the abdominal wall unchanged. We'll continue to monitor Doing well. Path: T.V adenoma, disclosed. Abdomen flat and soft. Incisions dry. Could be discharged with family's help Final Diagnosis Tubulo-villous adenoma of cecum GUADALUPE CORNELL MD May 01, 2017 2:41 pm
--- NOTE | 2017-05-01 14:43 | Discharge Summary ---
Diagnosis/Chief Complaint Date of Admission Apr 28, 2017 at 5:56 am Date of Discharge Discharge Date: May 01, 2017 Discharge Time: 14:41 Admission Diagnosis Admission Diagnosis Sessile lesion of cecum Discharge Diagnosis Tubulo-villous adenoma of cecum Reason Hospital Visit Elective admission to undergo robotic assisted right hemicolectomy and has done well post-op Discharge Summary Procedures Robotic assisted right hemicolectomy Discharge Physical Examination Allergies: Coded Allergies: No Known Drug Allergies (Verified Allergy, Unknown, 08/27/08) Vitals & I&Os Vital Signs Date Time Temp Pulse Resp B/P (MAP) Pulse Ox O2 Delivery O2 Flow Rate FiO2 05/01/17 11:52 99.5 76 20 144/62 91 Room Air 05/01/17 07:57 2.00 Hospital Course Labs (last 24 hrs) Laboratory Tests 04/28/17 06:28: Glucometer 164H 04/28/17 16:01: Glucometer 242H 04/28/17 20:56: Glucometer 165H 04/29/17 04:49: White Blood Count 13.8H, Red Blood Count 3.16L, Hemoglobin 9.1#L, Hematocrit 28L , Mean Corpuscular Volume 90, Mean Corpuscular Hemoglobin 29, Mean Corpuscular Hemoglobin Concent 32, Red Cell Distribution Width 14.2, Platelet Count 157, Mean Platelet Volume 10.0, Neutrophils (%) (Auto) 82H, Lymphocytes (%) (Auto) 10L, Monocytes (%) (Auto) 8, Eosinophils (%) (Auto) 0, Basophils (%) (Auto) 0, Neutrophils # (Auto) 11.2H, Lymphocytes # (Auto) 1.4, Monocytes # (Auto) 1.1H, Eosinophils # (Auto) 0.0, Basophils # (Auto) 0.0, Sodium Level 138, Potassium Level 3.6, Chloride Level 103, Carbon Dioxide Level 25, Anion Gap 10, Blood Urea Nitrogen 22H, Creatinine 1.26, Estimat Glomerular Filtration Rate 40, BUN/ Creatinine Ratio 17, Glucose Level 182H, Lactic Acid Level 1.27, Calcium Level 8.6, Magnesium Level 2.1, Total Bilirubin 0.5, Aspartate Amino Transf (AST/SGOT ) 15, Alanine Aminotransferase (ALT/SGPT) 11, Alkaline Phosphatase 72, B-Type Natriuretic Peptide 144.2H, Total Protein 5.1L, Albumin 3.3 04/29/17 11:36: Glucometer 187H 04/29/17 16:04: Glucometer 137H 04/29/17 21:19: Glucometer 235H 04/30/17 06:01: Glucometer 165H 04/30/17 11:25: Glucometer 204H 04/30/17 16:08: Glucometer 211H 04/30/17 21:44: Glucometer 172H 05/01/17 05:22: Glucometer 138H 05/01/17 11:03: Glucometer 231H Pending Labs Laboratory Tests 04/28/17 06:28: Glucometer 164 04/28/17 16:01: Glucometer 242 04/28/17 20:56: Glucometer 165 04/29/17 04:49: White Blood Count 13.8, Red Blood Count 3.16, Hemoglobin 9.1, Hematocrit 28, Mean Corpuscular Volume 90, Mean Corpuscular Hemoglobin 29, Mean Corpuscular Hemoglobin Concent 32, Red Cell Distribution Width 14.2, Platelet Count 157, Mean Platelet Volume 10.0, Neutrophils (%) (Auto) 82, Lymphocytes (%) (Auto) 10 , Monocytes (%) (Auto) 8, Eosinophils (%) (Auto) 0, Basophils (%) (Auto) 0, Neutrophils # (Auto) 11.2, Lymphocytes # (Auto) 1.4, Monocytes # (Auto) 1.1, Eosinophils # (Auto) 0.0, Basophils # (Auto) 0.0, Sodium Level 138, Potassium Level 3.6, Chloride Level 103, Carbon Dioxide Level 25, Anion Gap 10, Blood Urea Nitrogen 22, Creatinine 1.26, Estimat Glomerular Filtration Rate 40, BUN/ Creatinine Ratio 17, Glucose Level 182, Lactic Acid Level 1.27, Calcium Level 8.6, Magnesium Level 2.1, Total Bilirubin 0.5, Aspartate Amino Transf (AST/SGOT ) 15, Alanine Aminotransferase (ALT/SGPT) 11, Alkaline Phosphatase 72, B-Type Natriuretic Peptide 144.2, Total Protein 5.1, Albumin 3.3 04/29/17 11:36: Glucometer 187 04/29/17 16:04: Glucometer 137 04/29/17 21:19: Glucometer 235 04/30/17 06:01: Glucometer 165 04/30/17 11:25: Glucometer 204 04/30/17 16:08: Glucometer 211 04/30/17 21:44: Glucometer 172 05/01/17 05:22: Glucometer 138 05/01/17 11:03: Glucometer 231 Discharge Home Medications: Active Scripts Active Reported Glucosamine Sulfate (Glucosamine Sulfate 2Kcl) 1,000 Mg Tablet 1,000 Mg PO DAILY Garlic 1,000 Mg Capsule 1,000 Mg PO DAILY Hydralazine HCl 25 Mg Tablet 25 Mg PO BID Lisinopril 5 Mg Tablet 5 Mg PO DAILY Gabapentin 100 Mg Capsule 100 Mg PO TID Atorvastatin Calcium 40 Mg Tablet 40 Mg PO HS Potassium Chloride 10 Meq Tablet.er 10 Meq PO DAILY Januvia (Sitagliptin Phosphate) 50 Mg Tablet 50 Mg PO DAILY Aspirin Ec 81 Mg (Aspirin) 81 Mg Tabec 81 Mg PO DAILY Norvasc Tablet (Amlodipine Besylate) 10 Mg Tablet 10 Mg PO DAILY Plavix 75 Mg (Clopidogrel Bisulfate) 75 Mg Tablet 75 Mg PO DAILY Vitamin D (Cholecalciferol) 5,000 Unit Tablet 5,000 Unit PO DAILY Fish Oil 1,000 Mg Ec Softgel ([place]-3/Dha/Epa/Fish Oil) 1 Each Capsule. 1,000 Mg PO BID Instructions to patient/family Please see electronic discharge instructions given to patient. Clinical Quality Measures DVT/VTE Risk/Contraindication: Risk Factor Score Per Nursin RFS Level Per Nursing on Admit: 4+=Very High GUADALUPE CORNELL MD May 01, 2017 2:43 pm
[2017-05-01] MEDS ORDERED: TRAM50TA2 PO (14:44)
--- NOTE | 2017-05-01 14:47 | Discharge Inst-Simple/Standard ---
Discharge Inst-Standard Discharge Medications New, Converted or Re-Newed RX: RX on Chart Patient Instructions/Follow Up Plan of Care/Instructions/FU: May shower. To continue using incentive spirometry. F/U in 2 weeks Activity as Tolerated: Yes Discharge Diet: No Restrictions GUADALUPE CORNELL MD May 01, 2017 2:46 pm
[2017-05-01 15:41] VITALS: BP 144/62
[2017-05-14] MEDS ORDERED: AMLO10TA2 PO (11:45)
[2017-05-14] MEDS ORDERED: POTA10CA43 PO (11:45)
[2017-05-14] MEDS ORDERED: ASPI-983 PO (14:23)
[2017-05-15] MEDS ORDERED: OMG1KC PO (09:51)
[2017-05-15] MEDS ORDERED: SITA50TA PO (09:51)
== END 2017-05-01 15:20 | disposition home or self-care (01) | DRG 331 ==
LOC: 4TH 05:56 → SURG 05:57 → EDSTATUS 07:30 → ICU 12:15 → 4TH 04-29 13:50
PROVIDERS: ADMIT Surgery; ATTEND Surgery
PROC: 8E0W4CZ Robotic Assisted Procedure of Trunk Region, Percutaneous Endoscopic Approach (ICD-10-PCS; 2017-04-28)
PROC: 0DTF4ZZ Resection of Right Large Intestine, Percutaneous Endoscopic Approach (ICD-10-PCS; principal; 2017-04-28 07:20)
DX: D12.0 Benign neoplasm of cecum (principal); I25.10 Atherosclerotic heart disease of native coronary artery without angina pectoris; I10 Essential (primary) hypertension; E78.5 Hyperlipidemia, unspecified; E11.9 Type 2 diabetes mellitus without complications; D50.0 Iron deficiency anemia secondary to blood loss (chronic); Z79.4 Long term (current) use of insulin
CPT/HCPCS: 36415; 80053; 82962; 83605; 83735; 83880; 85025; 86850; 86870; 86900; 86901; 88307; 94664